=== PATIENT | male | born 1985 | race Caucasian/White ===

== ENCOUNTER 2016-12-14 18:14 | Observation (INO) | payer OTHER ==
[2016-12-14] MEDS ORDERED: SODIUM CHLORIDE 0.9% 1,000 ML IV ONE (18:58)
[2016-12-14] MEDS ORDERED: IOPAMIDOL-300 100 ML VIAL IVP ONE (20:13)
[2016-12-14] MEDS ORDERED: ONDANSETRON 4 MG/2 ML VIAL IVP PRN (21:53)
[2016-12-14] MEDS ORDERED: SODIUM CHLORIDE FLUSH 0.9% 10 ML SYRINGE IVP PRN (21:53)
[2016-12-14] MEDS ORDERED: ACETAMINOPHEN 325 MG TABLET PO PRN (21:53)
[2016-12-14] MEDS: SODIUM CHLORIDE FLUSH 0.9% 10 ML SYRINGE IVP SCH (23:30)
[2016-12-15] MEDS: SODIUM CHLORIDE FLUSH 0.9% 10 ML SYRINGE IVP SCH (06:15)
[2016-12-15] MEDS ORDERED: predniSONE 20 MG TABLET PO SCH (09:00)
[2016-12-15] MEDS ORDERED: POLYETHYLENE GLYCOL 3350 17 GM PACKET PO SCH (09:00)
[2016-12-15] MEDS ORDERED: GADOBUTROL 10 MMOL/10 ML VIAL IVP ONE (11:27)
== END 2016-12-15 15:45 | disposition home or self-care (01) ==
DX: R29.810 Facial weakness (principal); Q28.3 Other malformations of cerebral vessels
CPT/HCPCS: 36415; 70496; 70498; 70544; 70549; 80053; 83690; 85025; 93005; 93010; 96360; 99284; 99285; A9585; G0378; J7512; Q9967

== ENCOUNTER 2024-02-22 12:24 | Emergency (ER) | payer OTHER ==
[2024-02-22 13:09] LABS: BASOPHILS % (AUTO) 0.4 %; EOSINOPHILS # (AUTO) 0.2 10^3/uL (0.0-0.7); EOSINOPHILS % (AUTO) 2.6 %; HCT - HEMATOCRIT 45.3 % (42.0-52.0); HGB - HEMOGLOBIN 15.5 g/dL (14.0-18.0); LYMPHOCYTES # (AUTO) 2.1 10^3/uL (1.5-3.5); LYMPHOCYTES % (AUTO) 29.9 %; MEAN CORPUSCULAR HEMOGLOBIN 29.6 pg (27.0-31.0); MEAN CORPUSCULAR HGB CONC 34.2 g/dL (32.0-36.0); MEAN CORPUSCULAR VOLUME 86.6 fL (80.0-94.0); MEAN PLATELET VOLUME 9.4 fL (7.4-11.4); MONOCYTES # (AUTO) 0.4 10^3/uL (0.0-1.0); MONOCYTES % (AUTO) 5.7 %; NEUTROPHILS # (AUTO) 4.3 10^3/uL (1.5-6.6); PLT - PLATELET COUNT 262 10^3/uL (130-450); RED BLOOD COUNT 5.23 10^6/uL (4.70-6.10); RED CELL DISTRIBUTION WIDTH 12.3 % (12.0-15.0)
[2024-02-22 13:21] LABS: ALBUMIN 4.5 g/dL (3.2-5.5); ALBUMIN/GLOBULIN RATIO 1.6 (1.0-2.2); BILIRUBIN,TOTAL 0.5 mg/dL (0.2-1.0); CALCIUM 9.5 mg/dL (8.5-10.3); CREATININE 1.2 mg/dL (0.6-1.3); POTASSIUM 3.9 mmol/L (3.5-4.5); TOTAL PROTEIN 7.3 g/dL (6.4-8.9)
[2024-02-22 13:27] LABS: TROPONIN I HIGH SENSITIVITY 3.2 ng/L (2.3-19.7)
--- NOTE | 2024-02-22 13:32 | XRAY Report ---
PROCEDURE: Chest 1V INDICATIONS: Chest Pain TECHNIQUE: One view of the chest was acquired. COMPARISON: None. FINDINGS: Surgical changes and devices: None. Lungs and pleura: No pleural effusions or pneumothorax. Lungs are clear. Mediastinum: Mediastinal contours appear normal. Heart size is normal. Bones and chest wall: No suspicious bony lesions. Overlying soft tissues appear unremarkable. IMPRESSION: No acute cardiopulmonary process. Reviewed by: Francia Brownlee MD on 02/22/2024 1:30 PM PDT Approved by: Francia Brownlee MD on 02/22/2024 1:30 PM PDT Station ID: [id number]
--- NOTE | 2024-02-22 14:02 | ED Physician Documentation ---
History of Present Illness - Stated complaint Stated Complaint: CHEST PX - Chief complaint Chief Complaint: Cardiac - History obtained from History obtained from: Patient - History of Present Illness Timing: Today Pain level max: 2 Pain level now: 2 - Additonal information Additional information: Patient is a 38-year-old male who presents with 2 days of substernal chest pain, nonradiating. Nothing makes it better or worse. No change with exertion, inspiration, eating, drinking. He states he has had similar symptoms in the past and had a normal workup including echocardiogram and cardiac stress test. No fevers. No chills. No cough. No congestion. No change in activity. No abdominal pain, nausea, vomiting. No lightheadedness or dizziness. He went to the walk-in clinic and was referred here for further evaluation. No calf swelling. No recent immobilization, no recent travel. Not on medications at home. Review of Systems Constitutional: denies: Fever, Chills Respiratory: denies: Cough GI: denies: Vomiting, Diarrhea Skin: denies: Rash Musculoskeletal: denies: Neck pain, Back pain Neurologic: denies: Headache PD PAST MEDICAL HISTORY - Past Medical History Past Medical History: No Cardiovascular: None Respiratory: None Neuro: None Endocrine/Autoimmune: None GI: None : None HEENT: None Psych: None Musculoskeletal: None Derm: None - Past Surgical History Past Surgical History: No - Present Medications Home Medications: Ambulatory Orders Medication Instructions Recorded Confirmed No Known Home Medications 02/22/24 02/22/24 - Allergies Allergies/Adverse Reactions: Allergies Allergy/AdvReac Type Severity Reaction Status Date / Time Penicillins Allergy Unknown Verified 02/22/24 12:42 - Social History Does the pt smoke?: No Smoking Status: Never smoker Does the pt drink ETOH?: Yes Does the pt have substance abuse?: No - Immunizations Immunizations are current?: Yes - POLST Patient has POLST: No PD ED PE NORMAL - Vitals Vital signs reviewed: Yes - General General: Alert and oriented X 3, No acute distress - HEENT HEENT: Moist mucous membranes - Neck Neck: Supple, no meningeal sign - Cardiac Cardiac: RRR, Strong equal pulses - Respiratory Respiratory: No respiratory distress, Clear bilaterally - Abdomen Abdomen: Soft, Non tender, Non distended - Derm Derm: Warm and dry - Extremities Extremities: No edema, No calf tenderness / cord - Neuro Neuro: Alert and oriented X 3 - Psych Psych: Normal mood, Normal affect Results - Vitals Vitals: Vital Signs - 24 hr 02/22/24 02/22/24 02/22/24 12:27 12:42 14:25 Temperature 36.5 C Heart Rate 78 80 Respiratory 16 16 17 Rate Blood Pressure 143/64 H 135/80 H O2 Saturation 99 98 Oxygen O2 Source Room air - EKG (time done) 1238 EKG releavant findings:: EKG personally interpreted by author of this note. Relevant findings are: Rate: Rate (enter#) (75) Rhythm: NSR [place]: Normal Intervals: Normal AR QRS: Normal Ischemia: Normal ST segments - Labs Labs: Laboratory Tests 02/22/24 02/22/24 12:58 12:58 WBC 7.0 RBC 5.23 Hgb 15.5 Hct 45.3 MCV 86.6 MCH 29.6 MCHC 34.2 RDW 12.3 Plt Count 262 MPV 9.4 Neut # (Auto) 4.3 Lymph # (Auto) 2.1 [place] # (Auto) 0.4 Eos # (Auto) 0.2 Baso # (Auto) 0.0 Absolute Nucleated RBC 0.00 Nucleated RBC % 0.0 Sodium 137 Potassium 3.9 Chloride 104 Carbon Dioxide 27 Anion Gap 6.0 BUN 18 Creatinine 1.2 Estimated GFR (MDRD) 69 L Glucose 108 H Calcium 9.5 Total Bilirubin 0.5 AST 24 ALT 38 Alkaline Phosphatase 76 Troponin I High Sens 3.2 Total Protein 7.3 Albumin 4.5 Globulin 2.8 Albumin/Globulin Ratio 1.6 Lipase 32 - Rads (name of study) cxr Relevant Findings:: Final report received, See rad report PD Medical Decision Making - ED course Complexity details: reviewed results, re-evaluated patient, considered di fferential (No ST elevation [place], no aortic dissection, no PE, no tension pneumothorax, no aortic aneurysm), d/w patient ED course: 38-year-old male presents to the emergency department with atypical chest pain. Nonradiating. No changes with exertion. Normal EKG. Normal high-sensitivity troponin. Normal cardiac stress test recently. Unclear etiology of his symptoms. He states that the pain is improving since the aspirin was given to him at the walk-in clinic. No evidence of DVT, PE. No arrhythmias. We will have him follow-up with his doctor for further care. Patient counseled regarding signs and symptoms for which I believe and urgent re-evaluation would be necessary. Patient with good understanding of and agreement to plan and is comfortable going home at this time This document was made in part using voice recognition software. While efforts are made to proofread this document, sound alike and grammatical errors may occur. Departure - Departure Disposition: 01 Home, Self Care Clinical Impression: Atypical chest pain Condition: Good Instructions: ED Chest Pain Atypical Unkn Cause Follow-Up: KAYLI DORSEY DO [Primary Care Provider] - Within 1 week Comments: Your EKG, blood work and chest x-ray are normal. The cause of your symptoms is unclear. Please follow-up with your doctor for further care. They may want to perform an endoscopy to see if you have GERD that could be causing your pain. Forms: PCP List Discharge Date/Time: 02/22/24 14:32
[2024-02-22 14:33] VITALS: BP 135/80; O2SAT 98
== END 2024-02-22 14:32 | disposition home or self-care (01) ==
LOC: ED 12:24
DX: R07.89 Other chest pain (principal)
CPT/HCPCS: 36415; 80053; 83690; 84484; 85025; 93005; 99284